=== PATIENT | male | born 1980 | race Asian ===

== ENCOUNTER 2022-11-19 08:23 | Inpatient (IN) | payer OTHER ==
[2022-11-19 08:54] VITALS: BMI 35.2
[2022-11-19] MEDS ORDERED: BENZOCAINE/MENTHOL (CHLORASEPTIC ) LOZENGE MM PRN (09:04)
[2022-11-19] MEDS ORDERED: NALOXONE HCL 0.4 MG/ML VIAL IM PRN (09:04)
[2022-11-19] MEDS ORDERED: LORazepam 1 MG TABLET PO PRN (09:04)
[2022-11-19] MEDS ORDERED: NALOXONE HCL (KLOXXADO) 8 MG SPRAY NS PRN (09:04)
[2022-11-19] MEDS ORDERED: POLYETHYLENE GLYCOL (HEALTHYLAX) 3350 17 GM PACKET PO PRN (09:04)
[2022-11-19] MEDS ORDERED: LOPERAMIDE HCL 2 MG CAPSULE PO PRN (09:04)
[2022-11-19] MEDS ORDERED: MAGNESIUM HYDROX 2400MG/30ML ORAL SUSPENSION 30 ML CUP PO PRN (09:04)
[2022-11-19] MEDS ORDERED: MAG HYDROX/AL HYDROX/SIMETH 30 ML UNIT-DOSE CUP PO PRN (09:04)
[2022-11-19] MEDS ORDERED: guaiFENesin 600 MG TABLET.ER (FP) PO PRN (09:04)
[2022-11-19] MEDS ORDERED: DICYCLOMINE HCL 10 MG CAPSULE PO PRN (09:04)
[2022-11-19] MEDS ORDERED: BISMUTH SUBSALICYLATE 524 MG/30 ML PO PRN (09:04)
[2022-11-19] MEDS ORDERED: ONDANSETRON *ODT* 4 MG TABLET SL PRN (09:04)
[2022-11-19] MEDS ORDERED: IBUPROFEN 400 MG TABLET (FP) PO PRN (09:04)
[2022-11-19] MEDS ORDERED: IBUPROFEN 600 MG TABLET (FP) PO PRN (09:04)
[2022-11-19] MEDS ORDERED: BENZONATATE 200 MG CAPSULE PO PRN (09:04)
[2022-11-19] MEDS ORDERED: ACETAMINOPHEN 325 MG TABLET (FP) PO PRN (09:04)
[2022-11-19] MEDS ORDERED: LORazepam 2 MG TABLET PO ONE (09:04)
[2022-11-19] MEDS: PRENATAL VITAMINS W/ FOLIC ACID TABLET (FP) PO SCH (11:01)
[2022-11-19] MEDS: LORazepam 2 MG TABLET PO SCH ×3 (11:05→22:18)
[2022-11-19] MEDS: METOPROLOL TARTRATE 25 MG TABLET (FP) PO SCH (12:30)
[2022-11-19 13:39] LABS: HEMOGLOBIN 14.3 GM/dL (11.7-16.9); MCH 30.3 pg (25.7-33.7); MEAN CELL VOLUME 89.2 fl (80-96); MEAN PLT VOLUME 8.5 fl (7.5-11.1); PLATELET COUNT 162 10^3/uL (134-434); RBC 4.71 M/mm3 (4.00-5.60); RDW 15.1 % (11.9-15.9); WHITE BLOOD COUNT 5.5 K/mm3 (4.0-10.0)
[2022-11-19 13:49] LABS: POTASSIUM 3.3 mmol/L (3.5-5.1)
[2022-11-19 13:52] LABS: ALBUMIN 3.5 g/dl (3.4-5.0); BLOOD UREA NITROGEN 5.2 mg/dL (7-18); CALCIUM 8.5 mg/dL (8.5-10.1)
[2022-11-19 13:55] LABS: CREATININE 0.7 mg/dL (0.55-1.3)
[2022-11-19 13:57] LABS: TOT PROT 7.6 g/dl (6.4-8.2)
[2022-11-19] MEDS ORDERED: POTASSIUM CHLORIDE ORAL LIQUID 20 MEQ/15 ML PO ONE (15:30)
[2022-11-19] MEDS: LACTULOSE 20 GM/30 ML UDC (FOR ORAL USE ONLY) PO SCH ×2 (15:32→22:18)
[2022-11-19] MEDS: METHOCARBAMOL 500 MG TABLET PO PRN (22:17)
[2022-11-19] MEDS: hydrOXYzine PAMOATE 25 MG CAPSULE (FP) PO PRN (22:17)
[2022-11-19] MEDS: MELATONIN 5 MG TABLETS PO SCH (22:17)
[2022-11-19] MEDS: MIRTAZAPINE 15 MG TABLET (FP) PO SCH (22:18)
[2022-11-19] MEDS: THIAMINE HCL 100 MG TABLET (FP) PO SCH (22:18)
[2022-11-20] MEDS: LORazepam 2 MG TABLET PO SCH ×4 (05:39→22:23)
[2022-11-20] MEDS: LACTULOSE 20 GM/30 ML UDC (FOR ORAL USE ONLY) PO SCH ×3 (05:39→22:19)
[2022-11-20] MEDS: METOPROLOL TARTRATE 25 MG TABLET (FP) PO SCH (10:12)
[2022-11-20] MEDS: PRENATAL VITAMINS W/ FOLIC ACID TABLET (FP) PO SCH (10:12)
[2022-11-20] MEDS: PANTOPRAZOLE 20 MG TABLET PO SCH (10:12)
[2022-11-20] MEDS ORDERED: PNEUMOC 20-VAL CONJ-DIP CRM/PF 0.5 ML SYRINGE IM ONE (12:00)
[2022-11-20] MEDS: POTASSIUM CHLORIDE ORAL LIQUID 20 MEQ/15 ML PO SCH ×2 (13:12→22:20)
[2022-11-20] MEDS: hydrOXYzine PAMOATE 25 MG CAPSULE (FP) PO PRN (17:15)
[2022-11-20] MEDS ORDERED: LISINOPRIL 5 MG TABLET PO ONE (21:32)
[2022-11-20] MEDS: THIAMINE HCL 100 MG TABLET (FP) PO SCH (22:21)
[2022-11-20] MEDS: METHOCARBAMOL 500 MG TABLET PO PRN (22:21)
[2022-11-20] MEDS: MIRTAZAPINE 15 MG TABLET (FP) PO SCH (22:21)
[2022-11-20] MEDS: MELATONIN 5 MG TABLETS PO SCH (22:21)
[2022-11-21] MEDS: LORazepam 1 MG TABLET PO SCH ×4 (05:33→22:24)
[2022-11-21] MEDS: LACTULOSE 20 GM/30 ML UDC (FOR ORAL USE ONLY) PO SCH ×3 (05:34→22:21)
[2022-11-21] MEDS: METOPROLOL TARTRATE 25 MG TABLET (FP) PO SCH (10:11)
[2022-11-21] MEDS: PANTOPRAZOLE 20 MG TABLET PO SCH (10:11)
[2022-11-21] MEDS: PRENATAL VITAMINS W/ FOLIC ACID TABLET (FP) PO SCH (10:11)
[2022-11-21] MEDS: MIRTAZAPINE 15 MG TABLET (FP) PO SCH (22:22)
[2022-11-21] MEDS: MELATONIN 5 MG TABLETS PO SCH (22:22)
[2022-11-21] MEDS: METHOCARBAMOL 500 MG TABLET PO PRN (22:22)
[2022-11-21] MEDS: THIAMINE HCL 100 MG TABLET (FP) PO SCH (22:22)
[2022-11-21] MEDS: hydrOXYzine PAMOATE 25 MG CAPSULE (FP) PO PRN (22:22)
[2022-11-22] MEDS ORDERED: LORazepam 0.5 MG TABLET PO PRN
[2022-11-22] MEDS: LORazepam 0.5 MG TABLET PO SCH ×4 (05:46→22:11)
[2022-11-22] MEDS: LACTULOSE 20 GM/30 ML UDC (FOR ORAL USE ONLY) PO SCH ×3 (05:47→22:12)
[2022-11-22] MEDS: METOPROLOL TARTRATE 25 MG TABLET (FP) PO SCH (10:14)
[2022-11-22] MEDS: PANTOPRAZOLE 20 MG TABLET PO SCH (10:14)
[2022-11-22] MEDS: PRENATAL VITAMINS W/ FOLIC ACID TABLET (FP) PO SCH (10:15)
[2022-11-22] MEDS: MIRTAZAPINE 15 MG TABLET (FP) PO SCH (22:10)
[2022-11-22] MEDS: MELATONIN 5 MG TABLETS PO SCH (22:10)
[2022-11-22] MEDS: THIAMINE HCL 100 MG TABLET (FP) PO SCH (22:10)
[2022-11-23] MEDS ORDERED: LORazepam 0.5 MG TABLET PO ONE (05:00)
[2022-11-23] MEDS: LACTULOSE 20 GM/30 ML UDC (FOR ORAL USE ONLY) PO SCH (05:45)
[2022-11-23 09:14] VITALS: BP 143/91; PULSE 79; RESP 20; TEMP 98.1
[2022-11-23] MEDS: PRENATAL VITAMINS W/ FOLIC ACID TABLET (FP) PO SCH (09:39)
[2022-11-23] MEDS: METOPROLOL TARTRATE 25 MG TABLET (FP) PO SCH (09:39)
[2022-11-23] MEDS: PANTOPRAZOLE 20 MG TABLET PO SCH (09:40)
== END 2022-11-23 10:28 | disposition home or self-care (01) | DRG 775 ==
LOC: YASAS 08:23 → Y3N 09:31
PROVIDERS: ADMIT Allergy & Immunology; ATTEND Surgery
PROC: HZ2ZZZZ Detoxification Services for Substance Abuse Treatment (ICD-10-PCS; principal; 2022-11-19)
DX: F10.230 Alcohol dependence with withdrawal, uncomplicated (principal); F33.1 Major depressive disorder, recurrent, moderate; F41.1 Generalized anxiety disorder; E72.20 Disorder of urea cycle metabolism, unspecified; E87.6 Hypokalemia; I10 Essential (primary) hypertension; E66.9 Obesity, unspecified; Z68.35 Body mass index [BMI] 35.0-35.9, adult
CPT/HCPCS: 36415; 80053; 82140; 84132; 85027; 86780; 87635; 90677; 93005; 93010; Q0162

== ENCOUNTER 2024-02-12 10:52 | Inpatient (IN) | payer OTHER ==
[2024-02-12 11:08] VITALS: BMI 28.8
[2024-02-12] MEDS ORDERED: BENZOCAINE/MENTHOL (CHLORASEPTIC ) LOZENGE MM PRN (11:11)
[2024-02-12] MEDS ORDERED: MAG HYDROX/AL HYDROX/SIMETH 30 ML UNIT-DOSE CUP PO PRN (11:11)
[2024-02-12] MEDS ORDERED: DICYCLOMINE HCL 10 MG CAPSULE PO PRN (11:11)
[2024-02-12] MEDS ORDERED: IBUPROFEN 600 MG TABLET (FP) PO PRN (11:11)
[2024-02-12] MEDS ORDERED: POLYETHYLENE GLYCOL (HEALTHYLAX) 3350 17 GM PACKET PO PRN (11:11)
[2024-02-12] MEDS ORDERED: MAGNESIUM HYDROX 2400MG/30ML ORAL SUSPENSION 30 ML CUP PO PRN (11:11)
[2024-02-12] MEDS ORDERED: ONDANSETRON *ODT* 4 MG TABLET SL PRN (11:11)
[2024-02-12] MEDS ORDERED: BISMUTH SUBSALICYLATE 524 MG/30 ML PO PRN (11:11)
[2024-02-12] MEDS ORDERED: NALOXONE (NARCAN) HCL 4 MG/0.1 ML SPRAY NS PRN (11:11)
[2024-02-12] MEDS ORDERED: ACETAMINOPHEN 325 MG TABLET (FP) PO PRN (11:11)
[2024-02-12] MEDS ORDERED: BENZONATATE 200 MG CAPSULE PO PRN (11:11)
[2024-02-12] MEDS ORDERED: LORazepam 1 MG TABLET PO PRN (11:11)
[2024-02-12] MEDS ORDERED: guaiFENesin 600 MG TABLET.ER (FP) PO PRN (11:11)
[2024-02-12] MEDS ORDERED: IBUPROFEN 400 MG TABLET (FP) PO PRN (11:11)
[2024-02-12] MEDS ORDERED: LORazepam 2 MG TABLET ONE (11:37)
[2024-02-12] MEDS: LORazepam 2 MG TABLET PO SCH (11:40)
[2024-02-12] MEDS ORDERED: GABAPENTIN 100 MG CAPSULE ONE (11:41)
[2024-02-12] MEDS: GABAPENTIN 100 MG CAPSULE PO SCH (11:42)
[2024-02-12] MEDS: HYDROCHLOROTHIAZIDE 25 MG TABLET (FP) PO SCH (12:58)
[2024-02-12] MEDS: MIRTAZAPINE 15 MG TABLET (FP) PO SCH (22:19)
[2024-02-12] MEDS: MELATONIN 5 MG TABLETS PO SCH (22:20)
[2024-02-12] MEDS: THIAMINE 100 MG TABLET PO SCH (22:20)
[2024-02-13] MEDS: NALTREXONE HCL 50 MG TABLET PO SCH (09:54)
[2024-02-13] MEDS: METOPROLOL TARTRATE 25 MG TABLET (FP) PO SCH (09:54)
[2024-02-13] MEDS: PRENATAL VITAMINS W/ FOLIC ACID TABLET (FP) PO SCH (09:54)
[2024-02-13] MEDS: PANTOPRAZOLE 20 MG TABLET PO SCH (09:54)
[2024-02-13 15:57] LABS: HEMATOCRIT 43.5 % (35.4-49); HEMOGLOBIN 14.4 GM/dL (11.7-16.9); MCH 33.5 pg (25.7-33.7); MCHC 33.1 g/dl (32.0-35.9); MEAN CELL VOLUME 101.2 fl (80-96); MEAN PLT VOLUME 7.8 fl (7.5-11.1); PLATELET COUNT 179 10^3/uL (134-434); RBC 4.29 M/mm3 (4.00-5.60); RDW 13.4 % (11.9-15.9)
[2024-02-13 18:29] LABS: CHLORIDE 102 mmol/L (98-107); POTASSIUM 3.4 mmol/L (3.5-5.1); SODIUM 140 mmol/L (136-145)
[2024-02-13 18:38] LABS: CALCIUM 9.6 mg/dL (8.5-10.1)
[2024-02-13 18:39] LABS: ALBUMIN 3.5 g/dl (3.4-5.0); ANION GAP 9 mmol/L (4-13); BLOOD UREA NITROGEN 10.8 mg/dL (7-18); CO2 29 mmol/L (21-32); GLUCOSE,RANDOM 75 mg/dL (74-106)
[2024-02-13 18:42] LABS: CREATININE 0.7 mg/dL (0.55-1.3); SGOT/AST 48 U/L (15-37)
[2024-02-13 18:43] LABS: SGPT/ALT 31 U/L (13-61)
[2024-02-13 18:44] LABS: ALK PHOS 131 U/L (45-117); BILIRUBIN,TOTAL 0.8 mg/dL (0.2-1); TOT PROT 7.8 g/dl (6.4-8.2)
[2024-02-14] MEDS: LORazepam 1 MG TABLET PO SCH (05:42)
[2024-02-14] MEDS: LACTULOSE 20 GM/30 ML UDC (FOR ORAL USE ONLY) PO SCH (09:40)
[2024-02-14] MEDS: POTASSIUM CHLORIDE ORAL LIQUID 20 MEQ/15 ML PO ONE (13:36)
[2024-02-14] MEDS: LOPERAMIDE HCL 2 MG CAPSULE PO PRN (14:04)
[2024-02-14] MEDS: POTASSIUM CHLORIDE ORAL LIQUID 20 MEQ/15 ML PO SCH (22:19)
[2024-02-15] MEDS: LORazepam 0.5 MG TABLET PO SCH (05:55)
[2024-02-15] MEDS: METHOCARBAMOL 500 MG TABLET PO PRN (12:43)
[2024-02-15] MEDS: hydrOXYzine PAMOATE 25 MG CAPSULE (FP) PO PRN (12:43)
[2024-02-15] MEDS: LORazepam 0.5 MG TABLET PO PRN (18:08)
[2024-02-16] MEDS: LORazepam 0.5 MG TABLET PO ONE (05:52)
[2024-02-16 07:22] VITALS: RESP 16
[2024-02-16 09:15] VITALS: BP 129/90; PULSE 70; TEMP 96
[2024-02-16] MEDS: NALOXONE (NYS OPIOID OVERDOSE PROGRAM) 4 MG/0.1 ML SPRAY NS SCH (10:36)
== END 2024-02-16 09:40 | disposition home or self-care (01) | DRG 775 ==
LOC: YASAS 10:52 → Y6N 11:33
PROVIDERS: ADMIT Allergy & Immunology; ATTEND Surgery
PROC: HZ2ZZZZ Detoxification Services for Substance Abuse Treatment (ICD-10-PCS; principal; 2024-02-12)
DX: F10.230 Alcohol dependence with withdrawal, uncomplicated (principal); F10.280 Alcohol dependence with alcohol-induced anxiety disorder; F10.24 Alcohol dependence with alcohol-induced mood disorder; F41.9 Anxiety disorder, unspecified; G47.00 Insomnia, unspecified; I10 Essential (primary) hypertension; E87.6 Hypokalemia; K21.9 Gastro-esophageal reflux disease without esophagitis
CPT/HCPCS: 36415; 80053; 80305; 80307; 82140; 85027; 86780; 93005; 93010